=== PATIENT | female | born 1990 | race Caucasian/White ===

== ENCOUNTER 2018-07-29 10:11 | Observation (INO) ==
[2018-07-29 10:37] VITALS: BP 117/74
[2018-07-29] MEDS ORDERED: RINGER'S SOLUTION,LACTATED 1,000 ML IV PRN (12:17)
== END 2018-07-29 16:35 | disposition home or self-care (01) ==
LOC: OBCLINIC 10:11 → INTOOBSV 11:45 → OB 11:45
PROVIDERS: ADMIT Obstetrics & Gynecology; ATTEND Obstetrics & Gynecology
CPT/HCPCS: 59025; 96360; G0378

== ENCOUNTER 2018-07-30 13:15 | Inpatient (IN) ==
[2018-07-30] MEDS ORDERED: OXYTOCIN/DEXTROSE 5%-WATER 30 UNITS/500 ML BAG IV ONE ×2 (13:21→19:02)
[2018-07-30] MEDS ORDERED: RINGER'S SOLUTION,LACTATED 1,000 ML IV ONE (13:21)
[2018-07-30] MEDS ORDERED: DEXTROSE 5%-LACTATED RINGERS 1,000 ML IV PRN (13:21)
[2018-07-30] MEDS ORDERED: NALOXONE HCL 1 MG/1 ML SYRG IV PRN (14:18)
[2018-07-30] MEDS ORDERED: BUPIVACAINE HCL/0.9 % NACL/PF 250 ML EP PRN (14:18)
[2018-07-30] MEDS ORDERED: ONDANSETRON HCL/PF 2 MG/ML VIAL IV PRN (14:18)
[2018-07-30] MEDS ORDERED: fentaNYL CITRATE/PF 50 MCG/ML AMPUL IT SCH (14:30)
[2018-07-30 14:52] LABS: Cocaine Ur Negative (NEGATIVE); Urine Barbiturate Negative (NEGATIVE); Urine Benzodiazepines Negative (NEGATIVE); Urine Opiates Negative (NEGATIVE); Urine PCP Negative (NEGATIVE); Urine THC Negative (NEGATIVE)
--- NOTE | 2018-07-30 14:57 | ANES ---
Post Anesthesia Discharge - Transfer of Care Transfer of Care handoff given to nurse: Yes - Anesthesia Post Op Note Anesthesia Post Op Note: Care transferred to OB RN
--- NOTE | 2018-07-30 14:57 | ANES ---
Anesthesia Pre Procedure Eval Vitals/Labs: Last Vital Signs Temp 37 C 07/30/18 13:55 Pulse 91 07/30/18 13:55 Resp 18 07/30/18 13:55 BP 120/74 07/30/18 13:55 Pulse Ox 100 07/30/18 13:55 HOME MEDICATIONS [id number] 400 mcg-om3 35 mg-dha 25 mg-epa 5 mg-fish oil chewable tablet 2 tab PO DAILY tab 01/24/18 [Last Taken 07/29/18 21:00] ferrous sulfate 325 mg (65 mg iron) tablet,delayed release 325 mg PO DAILY tab 06/07/18 [Last Taken 07/29/18 21:00] Allergies/Adverse Reactions: Allergies Allergy/AdvReac Type Severity Reaction Status Date / Time Sulfa (Sulfonamide AdvReac Intermediate Vomiting Verified 07/30/18 13:07 Antibiotics) dairy products Allergy Mild Nausea, Uncoded 01/24/18 09:06 vomiting - Planned Procedure Planned Procedure: ACTIVE LABOR Medication List Reviewed:: Yes Allergies Verified: Yes Medical History (Last Reviewed 07/30/18 @ 14:56 by Blas Bland CRNA) and not yet delivered (Acute) Anemia affecting Onset Date: ~08/2011, 01/2014, 05/17/18 ADD (attention deficit disorder) Onset Date: Unknown 1998, 1999. Tx with Ritalin. No current medications with Depression Onset Date: 2006 tx with Xanax. No medications as of 2009 Migraine Onset Date: Unknown , spontaneous Onset Date: 11/17/102010, 2012 Cervical dysplasia Onset Date: 2017 severe, [place] Chlamydia Onset Date: 2016 treated Kidney stone Onset Date: 2011 during Oligohydramnios antepartum Onset Date: 2011 Abnormal Pap smear of cervix Onset Date: 2009 no colposcopy External hemorrhoids Onset Date: 2011 Surgical History (Last Reviewed 07/30/18 @ 14:56 by Blas Bland CRNA) H/O dilation and curettage Onset Date: 11/17/10 Missed AB History of tonsillectomy Onset Date: 2000 Hx LEEP (loop electrosurgical excision procedure), cervix, Onset Date: 10/2017 severe, [place] Family History (Last Reviewed 07/30/18 @ 14:56 by Blas Bland CRNA) Brother Heart disease Father Hypercholesteremia Grandfather Hypercholesteremia Myocardial infarction x2 Grandfather Diabetes Grandmother Diabetes Grandfather Emphysema of lung Mother Alive and well - Family Anesthesia History Family History:: no untoward family reactions to anesthesia - Airway/Neck/Teeth Denture Type: None Neck Exam: full range of motion Mallampatti Score: 1 Thyromental (T-M) distance: > 6 cm Mandibulo Hyoid distance: > 3 cm - Respiratory Smoking Status: Never smoker Sleep Apnea currently treated: No Sleep Apnea by current assessment: No - Cardiovascular Tolerate Activity: Good Heart Sounds: S1 & S2, Regular - Anesthesia Assessment and Plan ASA Class: PS, II, E Anesthesia Type Plan: Epidural Planned difficult intubation/equipment available: No
--- NOTE | 2018-07-30 14:58 | ANES ---
Post Anesthesia Assessment - Vital Signs Vitals: Last Vital Signs Temp 37 C 07/30/18 13:55 Pulse 91 07/30/18 13:55 Resp 18 07/30/18 13:55 BP 120/74 07/30/18 13:55 Pulse Ox 100 07/30/18 13:55 Airway Patency: Normal - Mental Status Level Of Consciousness: Awake - Pain Level Pain Score: 2 - N/V Assessment Nausea/Vomiting Presence: None Dehydration:: No
--- NOTE | 2018-07-30 15:00 | ANES ---
Anesthesia Procedure Note Procedure Note: ANESTHESIA PROCEDURE NOTE Date of Procedure: [] 07/30/2018 Time of procedure:[]. 1440 Performed by: Alvino Bland CRNA [employer] Impregnating Range Tender: None. Preprocedure diagnosis: Active labor. Post procedure diagnosis: Same. Procedure: Insertion of labor epidural. Indications: The patient is a [27] -year-old [multigravida] female in active labor requesting labor epidural for pain management. Findings: See below. Details of the procedure: The patient was placed in a sitting position. Back was prepped with DuraPrep. Patient was then draped in a sterile fashion. Lidocaine 1% was infiltrated to the skin and subcutaneous tissues at the level of the L3 4 interspace. The epidural space was identified using a 18-gauge Tuohy needle with [id number] technique. 20 mcg fentanyl was given intrathecally using a 27 ga. spinal needle. Epidural catheter was inserted without difficulty. Negative test dose was elicited using 5 mL of 1.5% preservative-free lidocaine plus epinephrine 1 200,000. The epidural catheter was then taped and secured in place. EBL: Minimal. Fluids: N/A. Specimen: N/A. Post procedure condition: The patient tolerated the procedure well. No complications were noted. Thank you for this consultation. [place] CRNA
--- NOTE | 2018-07-30 18:13 | HP ---
Chief Complaint - Chief Complaint Date of Service: 07/30/18 Time of Service: 17:59 Chief Complaint: contractions History of Present Illness: 27 yo at 37 4/7 wks presents to L&D complaining of contractions of increasing frequency and intensity. This without complications. Rh postive Rubella immune GBS negative Medical History (Last Reviewed 07/30/18 @ 18:01 by Paul England DO) and not yet delivered (Acute) Anemia affecting Onset Date: ~08/2011, 01/2014, 05/17/18 ADD (attention deficit disorder) Onset Date: Unknown 1998, 1999. Tx with Ritalin. No current medications with Depression Onset Date: 2006 tx with Xanax. No medications as of 2009 Migraine Onset Date: Unknown , spontaneous Onset Date: 11/17/102010, 2012 Cervical dysplasia Onset Date: 2017 severe, [place] Chlamydia Onset Date: 2016 treated Kidney stone Onset Date: 2011 during Oligohydramnios antepartum Onset Date: 2011 Abnormal Pap smear of cervix Onset Date: 2009 no colposcopy External hemorrhoids Onset Date: 2011 Surgical History: Surgical History (Last Reviewed 07/30/18 @ 18:01 by Paul England DO) H/O dilation and curettage Onset Date: 11/17/10 Missed AB History of tonsillectomy Onset Date: 2000 Hx LEEP (loop electrosurgical excision procedure), cervix, Onset Date: 10/2017 severe, [place] Family History: Family History (Last Reviewed 07/30/18 @ 18:01 by Paul England DO) Brother Heart disease Father Hypercholesteremia Grandfather Hypercholesteremia Myocardial infarction x2 Grandfather Diabetes Grandmother Diabetes Grandfather Emphysema of lung Mother Alive and well Social History: Preferred Language [place] Smoking Status Never smoker (Last Updated 07/30/18 @ 13:24 by Paul England DO) No Social History Section defined Review Of Systems (GEN) - Review of Systems Generalized/Overall Review: Present: No Symptoms Reported EENTM: Present: No Symptoms Reported Respiratory: Present: No Symptoms Reported Cardiac: Present: No Symptoms Reported Abdominal: Present: Other - contractions Genitourinary: Present: No Symptoms Reported Musculoskeletal: Present: No Symptoms Reported Neurological: Present: No Symptoms Reported Skin: Present: No Symptoms Reported Endocrine: Present: No Symptoms Reported Immunizations: IMMUNIZATION HX Immunizations Up to Date Yes History of Influenza Vaccine Yes Hx Pneumococcal Vaccination No Allergies/Adverse Reactions: Allergies Allergy/AdvReac Type Severity Reaction Status Date / Time Sulfa (Sulfonamide AdvReac Intermediate Vomiting Verified 07/30/18 13:07 Antibiotics) dairy products Allergy Mild Nausea, Uncoded 01/24/18 09:06 vomiting Home Medications: HOME MEDICATIONS [id number] 400 mcg-om3 35 mg-dha 25 mg-epa 5 mg-fish oil chewable tablet 2 tab PO DAILY tab 01/24/18 [Last Taken 07/29/18 21:00] ferrous sulfate 325 mg (65 mg iron) tablet,delayed release 325 mg PO DAILY tab 06/07/18 [Last Taken 07/29/18 21:00] Exam - Exam Vital Signs: Vital Signs - Last Taken Temp 36.9 C 07/30/18 15:02 Pulse 80 07/30/18 15:02 Resp 18 07/30/18 15:02 BP 112/64 07/30/18 15:02 Pulse Ox 100 07/30/18 15:02 Constitutional: Present: Alert, Oriented x3, Cooperative, Mild distress ENT Exam: Present: hearing grossly normal Breasts: Present: Exam deferred Respiratory: Present: lungs clear, no respiratory distress Cardiovascular/Chest: Present: regular rate, rhythm, no edema Abdomen: Present: soft, nontender, no rebound tenderness, other - gravid /Rectal: Present: Other - 4-5/90/-2 Extremity: Present: non-tender, no pedal edema, no calf tenderness Skin Exam: Present: normal color, warm/dry, no cyanosis Neurologic: Present: no motor/sensory deficits, alert, normal mood/affect, oriented x 3 Appearance: Present: appropriate appearance, appropriate insight Eye contact: Present: cooperative, good eye contact Thoughts: Present: normal thought pattern Diagnostic Studies: Laboratory Results Urine Opiates Screen Negative (NEGATIVE) 07/30/18 14:11 Barbiturate Screen Negative (NEGATIVE) 07/30/18 14:11 Ur Phencyclidine Scrn Negative (NEGATIVE) 07/30/18 14:11 Urine Amphetamine Negative (NEGATIVE) 07/30/18 14:11 U Benzodiazepines Scrn Negative (NEGATIVE) 07/30/18 14:11 Urine Cocaine Screen Negative (NEGATIVE) 07/30/18 14:11 Urine Marijuana (THC) Negative (NEGATIVE) 07/30/18 14:11 Assessment/Plan - Assessment/Plan (1) Labor established Assessment: Routine labor management. Epidural PRN. Problem: Acute
--- NOTE | 2018-07-30 19:01 | OR ---
Operative Report - Dictated Report Narrative: Spontaneous vaginal delivery of vigorous crying viable male at 1835 on 07/30/2018 with Apgars 10 and 10, weighing 2617 g in MANDI position. Cord clamping delayed approximately 1 minute Placenta delivered complete, intact, with three vessel cord Estimated blood loss: less than 50 ml Anesthesia: epidural Lacerations: None
[2018-07-30] MEDS ORDERED: oxyCODONE HCL/ACETAMINOPHEN 1 TAB TABLET PO PRN (19:02)
[2018-07-30] MEDS ORDERED: SENNOSIDES 8.6 MG TABLET PO PRN (19:02)
[2018-07-30] MEDS ORDERED: GLYCERIN/WITCH HAZEL LEAF 40 APPL BOX TP PRN (19:02)
[2018-07-30] MEDS ORDERED: HYDROCORTISONE 30 APPL TUBE TP PRN (19:02)
[2018-07-30] MEDS ORDERED: BENZOCAINE/MENTHOL 81 SPRAY CAN TP PRN (19:02)
[2018-07-30] MEDS ORDERED: BISACODYL 10 MG SUPP.RECT RC PRN (19:02)
[2018-07-30] MEDS: DOCUSATE SODIUM 100 MG CAPSULE PO SCH (20:43)
[2018-07-30] MEDS: IBUPROFEN 800 MG TABLET PO PRN (20:43)
[2018-07-31] MEDS: oxyCODONE HCL/ACETAMINOPHEN 1 TAB TABLET PO PRN ×3 (02:40→21:44)
[2018-07-31] MEDS: IBUPROFEN 800 MG TABLET PO PRN ×4 (04:13→23:46)
--- NOTE | 2018-07-31 08:44 | PN ---
Subjective - Date and Time Seen Date: 07/31/18 Time: 08:43 Objective - Vitals Vitals: Last Vital Signs Temp 36.7 C 07/31/18 06:50 Pulse 82 07/31/18 06:50 Resp 18 07/31/18 06:50 BP 126/74 07/31/18 06:50 Pulse Ox 97 07/31/18 06:50 Patient denies complaints. Lochia wnl Abdomen - soft, nontender Uterus - firm, at umbilicus - 1 No calf tenderness Impression: day #1 - s/p spontaneous vaginal delivery. Plan: Continue routine care Cauti Physician Documentation - Urinary Catheter Management Urethral (Henriquez) Date of Insertion: 07/30/18 Time of Insertion: 15:15 Date of Removal: 07/30/18 Time of Removal: 18:20 Assessment/Plan - Problems/Diagnosis (1) Labor established Problem: Acute History for MU Definition: * The number of deliveries resulting in a live the patient experienced prior to current hospitalization * The previous delivery of live twins or any live multiple gestation is cons idered one live event. *If primagravida or nulliparous is documented select zero for the number of previous live births. Live Events: 2
[2018-07-31] MEDS: FERROUS SULFATE 325 MG TABLET PO SCH (10:06)
[2018-07-31] MEDS: DOCUSATE SODIUM 100 MG CAPSULE PO SCH ×2 (10:06→21:45)
[2018-07-31] MEDS: PRENATAL VITS96/IRON FUM/FOLIC 1 TAB TABLET PO SCH (10:06)
[2018-08-01] MEDS: IBUPROFEN 800 MG TABLET PO PRN (04:54)
[2018-08-01] MEDS: oxyCODONE HCL/ACETAMINOPHEN 1 TAB TABLET PO PRN (04:54)
[2018-08-01 08:07] VITALS: BP 111/67
--- NOTE | 2018-08-01 12:00 | PN ---
Subjective - Date and Time Seen Date: 08/01/18 Time: 11:58 Objective - Vitals Vitals: Last Vital Signs Temp 36.6 C 08/01/18 07:00 Pulse 82 08/01/18 07:00 Resp 18 08/01/18 07:00 BP 111/67 08/01/18 07:00 Pulse Ox 98 08/01/18 07:00 Patient denies complaints. Lochia wnl Abdomen - soft, nontender Uterus - firm, at umbilicus - 2 No calf tenderness Impression: day #2 - s/p spontaneous vaginal delivery. Plan: Routine discharge instructions Cauti Physician Documentation - Urinary Catheter Management Urethral (Henriquez) Date of Insertion: 07/30/18 Time of Insertion: 15:15 Date of Removal: 07/30/18 Time of Removal: 18:20 Assessment/Plan - Problems/Diagnosis (1) Labor established Problem: Acute
[2018-08-01] MEDS: DOCUSATE SODIUM 100 MG CAPSULE PO SCH (12:04)
[2018-08-01] MEDS: FERROUS SULFATE 325 MG TABLET PO SCH (12:04)
[2018-08-01] MEDS: PRENATAL VITS96/IRON FUM/FOLIC 1 TAB TABLET PO SCH (12:04)
== END 2018-08-01 12:45 | disposition home or self-care (01) | DRG 807 ==
LOC: OB 13:15
PROVIDERS: ADMIT Obstetrics & Gynecology; ATTEND Obstetrics & Gynecology
CPT/HCPCS: 59025; 80307